=== PATIENT | female | born 1995 | race Caucasian/White ===

== ENCOUNTER 2016-09-15 03:22 | Emergency (ER) | payer MEDICAID, OTHER ==
[~2016-09-15] VITALS: Ht 162.6 cm; Wt 75.0 kg
[2016-09-15] MEDS ORDERED: SODIUM CHLORIDE FLUSH 10ML SYR IVF PRN (03:30)
[2016-09-15] MEDS ORDERED: SODIUM CHLORIDE FLUSH 10ML SYR IVF ONE (03:30)
[2016-09-15] MEDS ORDERED: MORPHINE SULFATE 4 MG/ML, 1ML IVPush PRN ×2 (03:30)
[2016-09-15] MEDS ORDERED: SODIUM CHLORIDE 0.9% 1,000 ML IV ONE ×2 (03:30)
[2016-09-15] MEDS ORDERED: ONDANSETRON 2MG/ML, 2ML IVPush PRN (03:30)
[2016-09-15] MEDS ORDERED: ONDANSETRON 2MG/ML, 2ML IVPush ONE (03:30)
[2016-09-15] MEDS ORDERED: MORPHINE SULFATE 4 MG/ML, 1ML ONE (03:44)
[2016-09-15] MEDS ORDERED: ONDANSETRON 2MG/ML, 2ML ONE (03:44)
[2016-09-15 05:04] VITALS: BP 111/78
== END 2016-09-15 05:08 | disposition short-term general hospital (02) ==
LOC: ED 03:43 → UNDOADMIN 04:26 → EDIP 04:26 → ED 05:08
DX: K35.3 Acute appendicitis with localized peritonitis (principal)
CPT/HCPCS: 96374; 96375; 99285; J2405; J7030